=== PATIENT | female | born 1990 | race Asian ===

== ENCOUNTER 2019-05-10 21:15 | Emergency (ER) | payer OTHER ==
[~2019-05-10] VITALS: Ht 152.4 cm; Wt 48.5 kg
[2019-05-10 21:15] VITALS: BP 111/66
[2019-05-10] MEDS ORDERED: IBUPROFEN 600 MG TAB PO ONE (21:25)
[2019-05-10] MEDS ORDERED: ACETAMINOPHEN 325 MG TAB PO ONE (21:25)
--- NOTE | 2019-05-10 21:42 | NUR ---
PT ASSISTED TO BED 5 VIA W/C.
--- NOTE | 2019-05-10 21:45 | NUR ---
PT 28 Y/O FEMALE BIB FOR LOWER BACK PAIN X 1 WEEK. PER PT BACK PAIN BEGAN A WEEK AGO BUT BECAME 8/10 STARTING TODAY. PT DENIES TRAUMA OR INJURIES. PT FEBRILE, TEMP 102.7. MOTRIN AND TYLENOL GIVEN PO. PT DENIES N/V/D. PT DENIES COUGH. PT DENIES TRAVELING OUTSIDE COUNTRY OR BEING IN CONTACT WITH PEOPLE WHO HAVE TRAVELED. PT RESPRATIONS ARE EVEN AND UNLABORED. SKIN IS WARM AND DRY TO TOUCH. PT AT BEDSIDE. PT ON MONTIOR. PT BED LOCKED AND IN LOWEST POSITION. MEDHX: NONE ALLERGIES: NKA.
[2019-05-10] MEDS ORDERED: NACL 0.9% 500 ML IV SCH (21:58)
[2019-05-10] MEDS ORDERED: KETOROLAC 30 MG/ML VIAL IVP ONE (22:00)
[2019-05-10 23:02] LABS: BASOPHILS % (AUTO) 0.3 % (0.0-2.0); EOSINOPHILS # (AUTO) 0.1 K/uL (0-0.4); EOSINOPHILS % (AUTO) 0.8 % (0.0-4.0); HEMATOCRIT 33.1 % (36-48); LYMPHOCYTES # (AUTO) 0.5 K/uL (2.5-16.5); LYMPHOCYTES % (AUTO) 7.6 % (20.5-51.1); MEAN CORPUSCULAR HEMOGLOBIN 28 pg (27-31); MEAN CORPUSCULAR HGB CONC 33 g/dL (33-37); MEAN CORPUSCULAR VOLUME 84.5 fL (80-94); MONOCYTES # (AUTO) 0.6 K/uL (0.8-1.0); MONOCYTES % (AUTO) 9.3 % (1.7-9.3); NEUTROPHILS # (AUTO) 5.3 K/uL (1.8-7.7); PLATELET COUNT (AUTO) 194 K/uL (140-450); RED BLOOD CELL COUNT(AUTO) 3.92 MIL/uL (4.20-5.40); RED CELL DISTRIBUTION WIDTH 14.2 % (11.6-13.7); WHITE BLOOD COUNT (AUTO) 6.4 K/uL (4.8-10.8)
[2019-05-10 23:04] LABS: BILIRUBIN,URINE NEGATIVE (NEGATIVE); BLOOD, URINE 3+ (NEGATIVE); COLOR,URINE YELLOW (YELLOW); LEUKOCYTE ESTERASE ,URINE NEGATIVE (NEGATIVE); NITRITE, URINE NEGATIVE (NEGATIVE); UGLUCOSE NEGATIVE (NEGATIVE)
[2019-05-10 23:17] LABS: ALBUMIN 4.2 g/dL (3.4-5.0); ANION GAP 11.7 (8-16); CARBON DIOXIDE 24.8 mmol/L (21-32); CREATININE 0.8 mg/dL (0.6-1.3); POTASSIUM 3.5 mmol/L (3.5-5.1); TOTAL BILIRUBIN 0.5 mg/dL (0.0-1.0)
[2019-05-10 23:18] LABS: APPEARANCE,URINE SLIGHTLY HAZY (CLEAR)
[2019-05-10 23:20] LABS: PROTHROMBIN TIME 11.2 secs (10.8-13.4)
[2019-05-10 23:21] LABS: RBC,URINE 20-50 /HPF (0-5)
--- NOTE | 2019-05-10 23:28 | NUR ---
PT LAYING SUPINE IN BED, PARTNER AT BEDSIDE. REPORTS 4/10 LOWER BACK PAIN, REPORTS IMPROVEMENT AFTER MEDS. VSS. ALL NEEDS MET.
[2019-05-11] MEDS ORDERED: cefTRIAXone 1,000 MG VIAL ONE (00:02)
--- NOTE | 2019-05-11 00:07 | NUR ---
DR FERGUSON GAVE NEW ORDER FOR ROCEHPIN 1GM IN D5 % 50ML GIVEN AT 100ML/HR. IV SITE PATENT. NO REDNESS, SWELLING, OR PAIN NOTED AT SITE. PT STATES LOW BACK PAIN HAS REDUCED FROM 10/10 TO 2/10. PT STATES PAIN IS TOLERABLE. RESPIRATIONS ARE EVEN AND UNLABORED. SKIN IS WARM AND DRY TO TOUCH. PT AFEBRILE (TEMP: 98.4). PT RESTING IN BED SITTING UPRIGHT. HUBAND AT BEDSIDE.
--- NOTE | 2019-05-11 00:14 | NUR ---
DR FERGUSON AT BEDSIDE.
--- NOTE | 2019-05-11 00:45 | NUR ---
NADR TO ROCHEPIN IV NOTED.
[2019-05-11 00:50] VITALS: BP 104/66
--- NOTE | 2019-05-11 00:50 | NUR ---
Patient discharged with v/s stable. Written and verbal after care instructions given and explained. Patient alert, oriented and verbalized understanding of instructions. Ambulatory with steady gait. All questions addressed prior to discharge. ID band removed. Patient advised to follow up with PMD. Rx of MOTRIN, BACTRIM given. Patient educated on indication of medication including possible reaction and side effects. Opportunity to ask questions provided and answered.
== END 2019-05-11 01:05 | disposition home or self-care (01) ==
LOC: MED 21:15
DX: N39.0 Urinary tract infection, site not specified (principal)
CPT/HCPCS: 36415; 71045; 72131; 80053; 81001; 81025; 83605; 85025; 85610; 85730; 87040; 87086; 93005; 96365; 96375; 99284; J0696; J1885; J7030; Q0092

== ENCOUNTER 2019-05-11 13:05 | Emergency (ER) | payer OTHER ==
[~2019-05-11] VITALS: Ht 160 cm; Wt 48.5 kg
[2019-05-11 13:13] VITALS: BP 109/70
[2019-05-11] MEDS ORDERED: ACETAMINOPHEN EXTRA STRENGTH 500 MG TAB PO ONE (13:15)
--- NOTE | 2019-05-11 13:15 | NUR ---
TRIAGE COMPLETE. VSS. RETURNED TO LOBBY AWAITNG BED IN ED.
[2019-05-11] MEDS ORDERED: ACETAMINOPHEN EXTRA STRENGTH 500 MG TAB ONE (13:16)
--- NOTE | 2019-05-11 14:25 | NUR ---
28 Y/O F C/C FEVER X1 DAY. PER PT HAS TAKEN IBUPROFEN TO TREAT FEVER. PT NKA. NO HX. NO RX. NO N/V/D. FAMILY BY PT. SITTING IN CHAIR B.
[2019-05-11 15:00] LABS: BASOPHILS % (AUTO) 0.7 % (0.0-2.0); EOSINOPHILS % (AUTO) 0.3 % (0.0-4.0); HEMATOCRIT 35.3 % (36-48); HEMOGLOBIN 11.6 g/dL (12.0-16.0); LYMPHOCYTES # (AUTO) 0.7 K/uL (2.5-16.5); LYMPHOCYTES % (AUTO) 17.2 % (20.5-51.1); MEAN CORPUSCULAR HEMOGLOBIN 28 pg (27-31); MEAN CORPUSCULAR HGB CONC 33 g/dL (33-37); MEAN CORPUSCULAR VOLUME 85.2 fL (80-94); MONOCYTES # (AUTO) 0.7 K/uL (0.8-1.0); MONOCYTES % (AUTO) 15.8 % (1.7-9.3); NEUTROPHILS # (AUTO) 2.7 K/uL (1.8-7.7); PLATELET COUNT (AUTO) 179 K/uL (140-450); RED BLOOD CELL COUNT(AUTO) 4.15 MIL/uL (4.20-5.40); RED CELL DISTRIBUTION WIDTH 13.9 % (11.6-13.7); WHITE BLOOD COUNT (AUTO) 4.1 K/uL (4.8-10.8)
[2019-05-11 15:32] LABS: ALBUMIN 3.9 g/dL (3.4-5.0); ANION GAP 13.5 (8-16); CARBON DIOXIDE 22.1 mmol/L (21-32); CREATININE 0.8 mg/dL (0.6-1.3); POTASSIUM 3.6 mmol/L (3.5-5.1); TOTAL BILIRUBIN 0.3 mg/dL (0.0-1.0)
[2019-05-11 15:49] VITALS: BP 121/61
--- NOTE | 2019-05-11 15:49 | NUR ---
Patient discharged with v/s stable. Written and verbal after care instructions given and explained. Patient alert, oriented and verbalized understanding of instructions. Ambulatory with steady gait. All questions addressed prior to discharge. ID band removed. Patient advised to follow up with PMD. Rx of ACETAMINOPHEN given, instructed to take rx abx at home, alternate motrin and tylenol for fever. Patient educated on indication of medication including possible reaction and side effects. Opportunity to ask questions provided and answered.
== END 2019-05-11 15:49 | disposition home or self-care (01) ==
LOC: MED 13:05
DX: N39.0 Urinary tract infection, site not specified (principal)
CPT/HCPCS: 36415; 80053; 83605; 85025; 99283